=== PATIENT | male | born 1945 | race Caucasian/White ===

== ENCOUNTER 2017-08-24 21:56 | Emergency (ER) | payer OTHER ==
[~2017-08-24] VITALS: Ht 182.9 cm; Wt 86.2 kg
[~2017-08-24 21:56] MED LIST: ALIGN4 MG; AMBIEN 10 MG TA10 MG; ASPIRIN EC81 M1 PO; CIPRO PO; CLONAZEPAM 1 MG1 M1 PO; CLONAZEPAM PO; COMBIVENT INH; DIAZEPAM 2MG TAB2 MG; DIFICID200 MG PO; DIFLUCAN; ENDUR-ACIN500 MG PO; FINASTERIDE5 MG PO; FLAGYL500 MG PO; FLOMAX; HYDROCODONE-AP1 EAC6 PO; LOPRESSOR 12.12.5 MG PO; MELATONIN3 MG PO; METRONIDAZOLE 500 MG PO; NORCO 5-325 TA1 EACH PO; PROTONIX 20 MG20 M1 PO; REGLAN 10 MG TA10 MG; SIMVASTATIN5 MG; TRIAMTERENE-HC1 EAC1 PO; TRICOR145 MG PO; VALIUM5 MG PO; VANCOCIN 250 M250 M1; VANCOCIN HCL250 MG PO; VENTOLIN HFA INH8 GM; ZETIA10 MG; ZOCOR40 MG; ZOFRAN4 MG; ZOFRAN4 MG PO; ZOLOFT 50 MG TA50 M1; [UNRECOGNIZED DRUG - REMARK]
[2017-08-24 21:59] VITALS: BP 160/73
[2017-08-24] MEDS ORDERED: FENOFIBRATE160 MG PO (22:46)
[2017-08-24] MEDS ORDERED: CLONAZEPAM 0.50.5 M1 PO (22:48)
[2017-08-24] MEDS ORDERED: HYDROCORTISONE30 G9 RECTAL (23:36)
== END 2017-08-25 05:25 | disposition home or self-care (01) ==
LOC: ER 21:56
DX: K59.00 Constipation, unspecified (principal); K62.89 Other specified diseases of anus and rectum; F41.9 Anxiety disorder, unspecified; K21.9 Gastro-esophageal reflux disease without esophagitis; Z96.612 Presence of left artificial shoulder joint; Z96.641 Presence of right artificial hip joint

== ENCOUNTER → 2021-09-06 | Outpatient (CLI) | payer OTHER, MEDICARE ==
[~2021-09-06] VITALS: Ht 180.3 cm; Wt 65.8 kg
[~2021-09-06] MED LIST changes: -AMBIEN 10 MG TA10 MG; +AMBIEN 10 MG TA10 MG PO; +CLONAZEPAM 0.50.5 M1 PO; +FENOFIBRATE160 MG PO; +HYDROCORTISONE30 G9 RECTAL
--- NOTE | 2021-09-06 14:52 | P ---
[facility] [place] [address] PROCEDURE REPORT Name: FLOYD IRELAND Room #: REG [facility]law[facility]ley.#: [id number] Admission: 09/06/21 Attend Phys: Lorne Salazar Discharge: Date of : 49 Report #: [id number] THIS REPORT FOR: cc: Mahesh Griffith David J. DO McElhinney, Christian C. MD ~ cc: Mahesh Griffith DO, Thomas A. Franey, MD DATE OF SERVICE: 09/06/2021 PROCEDURE PERFORMED: Upper endoscopy with balloon dilation of the esophagus. HISTORY OF PRESENT ILLNESS: The patient is a 76-year-old male well-known to me with a previous history of duodenal ulcer perforation in 2011, status post repair. Since that time, he has been on PPI therapy and denies any NSAID use. He underwent an upper endoscopy for dysphagia last year on 03/21/2020 by myself. Dilation was performed, which was helpful. 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 He was in the hospital for approximately a month at [facility] later with rehabilitation. He has been describing dysphagia now for the last few weeks. Again, denies any NSAID use. He has been on Protonix on a daily basis throughout this time. Plan is for upper endoscopy. DESCRIPTION OF PROCEDURE: The risks and benefits of the procedure were explained to the patient, those risks including but not limited to bleeding, perforation and the risk of sedation. He understood these risks and gave informed consent. Sedation was given using propofol per Anesthesia. Next, using a standard Olympus upper endoscope, the scope was placed in the patient's mouth and advanced under direct vision into the esophagus, into the distal esophagus, at which point there was a tight stricture at the GE junction. I was not able to pass the scope through the stricture. I then proceeded with balloon dilation of the stricture using a 10, 11, and 12 mm balloon. The balloon was inflated to 12 mm and held in place for 1 minute. The balloon was then deflated and the catheter was removed. There was a small mucosal tear noted after dilation. No evidence of bleeding. I was able to pass the scope through the stricture area without resistance after dilation. Overall, there was a diffuse gastritis. No evidence of ulcerations or erosions. Biopsies were obtained to rule out H. pylori. The pylorus was normal and patent. The duodenal bulb was normal. Once again, a mild stricture, which had been seen on previous upper endoscopies was noted in the first portion of the duodenum. 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 No evidence of ulcerations. I advanced the scope into the distal second portion near the third portion of the duodenum. No evidence of abnormalities were noted. At this point, the scope was then withdrawn and the procedure terminated. The patient tolerated the procedure well. [address] [address] PROCEDURE REPORT Name: FLOYD IRELAND Room #: REG LAUREL [place]#: [id number] Admission: 09/06/21 Attend Phys: Lorne Salazar Discharge: Date of : 49 Report #: [id number] IMPRESSION: 1. 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 2. Gastritis, biopsies obtained for H. pylori. 3. Mild stricture duodenal bulb, similar appearance on EGD last year. 4. Small lipoma and duodenal diverticulum again noted. RECOMMENDATIONS: 1. Observe the patient post-dilation. 2. Continue PPI therapy. 3. Await biopsy results. 4. The patient has continued dysphagia after balloon dilation, would consider repeat upper endoscopy in the next 1-2 months and repeat dilation. Thank you for allowing me to participate in his care. <ELECTRONICALLY SIGNED> By: Lorne Rice MD 09/06/21 1452 [id number] 0809 Lorne Rice MD /nt
--- NOTE | 2021-09-08 17:06 | PATH ---
[facility] [address] [place] [address] PATHOLOGY RPT PROCEDURE Name: NIKHIL IRELAND Room #: REG [facility] MQuincy.#: [id number] Admission: 09/06/21 Date of : 49 Discharge: Report #: [id number] Path Case #: [id number] [facility] Accession Number: [id number] . 01 Material submitted: . gastrointestinal site - GASTRITIS R/O H. PYLORI . 01 Clinical history: . EGD GASTRITIS . 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 - The immunoperoxidase stain for Helicobacter pylori is negative. (SHA/db; 09/08/2021) LBQ 09/08/2021 1136 Local . 01 Electronically signed: . Christiano Tan MD, Pathologist NPI- [id number] . 01 Gross description: . The specimen is received in formalin, labeled "Uzma, Nikhil, gastritis". Received are 4 segments of pale dang tissue ranging in size from 0.3-0.4 cm in maximum dimensions. The specimen is entirely submitted in cassette A1. ([facility]; 09/06/2021) NRI/NRI 09/06/2021 2147 Local . 01 Pathologist provided ICD-10: K31.9 . 01 CPT . 611272, K23634 Specimen Comment: A courtesy copy of this report has been sent to [phone] Specimen Comment: [phone] Specimen Comment: Report sent to / DR HERNÁNDEZ Performed at: [address], [place], [place] [id number] MD Christiano Tan MD Phone: [phone]
== END | disposition home or self-care (01) ==
LOC: GI 07:39
PROVIDERS: ATTEND Specialist
DX: R13.10 Dysphagia, unspecified (principal); K31.9 Disease of stomach and duodenum, unspecified; K29.70 Gastritis, unspecified, without bleeding; K22.2 Esophageal obstruction; K57.10 Diverticulosis of small intestine without perforation or abscess without bleeding; K31.5 Obstruction of duodenum; D17.5 Benign lipomatous neoplasm of intra-abdominal organs; K21.9 Gastro-esophageal reflux disease without esophagitis; F41.9 Anxiety disorder, unspecified; Z98.890 Other specified postprocedural states; Z79.899 Other long term (current) drug therapy; Z96.641 Presence of right artificial hip joint; Z96.612 Presence of left artificial shoulder joint; Z87.891 Personal history of nicotine dependence; Z20.822 Contact with and (suspected) exposure to COVID-19
CPT/HCPCS: 62110; 62900

== ENCOUNTER → 2021-11-01 | Outpatient (CLI) | payer OTHER, MEDICARE ==
[~2021-11-01] VITALS: Ht 180.3 cm; Wt 63.5 kg
[~2021-11-01] MED LIST changes: +PROTONIX40 M1 PO; +SIMVASTATIN40 MG PO
--- NOTE | 2021-11-03 14:11 | P ---
[facility] [place] [address] PROCEDURE REPORT Name: FLOYD IRELAND Room #: REG LAUREL Saeed#: [id number] Admission: 11/01/21 Attend Phys: Lorne Salazar Discharge: Date of : 49 Report #: [id number] THIS REPORT FOR: cc: Mahesh Griffith David J. DO McElhinney, Christian C. MD ~ cc: Mahesh Griffith DO DATE OF SERVICE: 11/01/2021 PROCEDURE PERFORMED: Upper endoscopy with esophageal dilation. HISTORY OF PRESENT ILLNESS: The patient is a 76-year-old male with a known distal esophageal stricture with recurrent dysphagia. He has also had 2 perforations of a duodenal ulcer over the years, first one being in 2011, last one being a year ago. He has a known mild stricture of his duodenum as well. I performed an upper endoscopy on 09/06/2021 and the patient was noted to have a tight stricture in the distal esophagus. In fact, the scope would not pass at that time. I balloon dilated to a max of 12 mm. He did report some improvement. He still has been on basically a liquid diet, was told that he was not to advance to a regular diet by a nurse. He has been on Protonix. He was noted to have gastritis during last upper endoscopy and biopsies were negative for H. pylori. He presents today for repeat dilation. DESCRIPTION OF PROCEDURE: The risks and benefits of the procedure were explained to the patient, those risks including but not limited to bleeding, perforation and the risk of sedation. He understood these risks and gave informed consent. Sedation was given using propofol per Anesthesia. Next, using a standard Olympus upper endoscope, the scope was placed in the patient's mouth and advanced under direct vision through the esophagus, stomach and into the second portion of the duodenum. The larynx was normal in appearance. The upper and mid esophagus were normal also. In the distal esophagus, once again a stricture was noted. However, I was able to pass the scope through the stricture this time with some resistance. Overall, the gastric mucosa was normal in the fundus and body. Mild gastritis was once again noted in the antrum. Again, recent biopsies were negative for H. pylori. The pylorus was normal and patent. In the duodenal bulb, a suture was noted from his previous surgery. Once again, a mild stricture was noted in the first portion of the duodenum. I was able to pass the scope through this area without difficulty. In the second portion, he was noted to again have a duodenal diverticulum with a small lipoma. This was noted in the past. The scope was then brought back up into the patient's distal esophagus and I proceeded with CRE balloon dilation, this time starting with a 12 mm balloon and going up to 15. The 15 was insufflated and held in place for 1 minute. There were 2 small mucosal tears noted after dilation. No evidence of bleeding. The scope passed through this area much more easily after balloon dilation. At this point, the scope was then [address] [address] PROCEDURE REPORT Name: FLOYD IRELAND Room #: REG LAUREL [place]#: [id number] Admission: 11/01/21 Attend Phys: Lorne Salazar Discharge: Date of : 49 Report #: [id number] withdrawn and the procedure terminated. The patient tolerated the procedure well. IMPRESSION: 1. Distal esophageal stricture, status post balloon dilation to a maximum of 15 mm. 2. Mild gastritis. 3. Mild stricture of the duodenum. 4. Duodenal diverticulum and lipoma. RECOMMENDATIONS: 1. Observe the patient post dilation. 2. We will advance diet, have the patient chew his food thoroughly and advance diet as tolerated. Thank you for allowing me to participate in his care. <ELECTRONICALLY SIGNED> By: Lorne Rice MD 11/03/21 1411 0916 1224 Lorne Rice MD /nt
== END | disposition home or self-care (01) ==
LOC: GI 08:13
PROVIDERS: ATTEND Specialist
DX: R13.19 Other dysphagia (principal); K22.2 Esophageal obstruction; K31.5 Obstruction of duodenum; K57.10 Diverticulosis of small intestine without perforation or abscess without bleeding; K29.70 Gastritis, unspecified, without bleeding; K21.9 Gastro-esophageal reflux disease without esophagitis; F41.9 Anxiety disorder, unspecified; Z98.890 Other specified postprocedural states; Z79.899 Other long term (current) drug therapy; Z96.641 Presence of right artificial hip joint; Z96.612 Presence of left artificial shoulder joint; Z87.19 Personal history of other diseases of the digestive system; Z20.822 Contact with and (suspected) exposure to COVID-19
CPT/HCPCS: 62110; 62900